=== PATIENT | male | born 1955 | race Caucasian/White ===

== ENCOUNTER 2017-01-12 01:11 | Emergency (ER) | payer BC ==
[2017-01-12] MEDS ORDERED: LIDOCAINE 5% PATCH ONE (01:41)
[2017-01-12] MEDS ORDERED: KETOROLAC TROMETHAMINE 60 MG/2 ML VIAL ONE (01:41)
[2017-01-12] MEDS ORDERED: OXYCODONE HCL 5 MG TABLET ONE (01:41)
[2017-01-12] MEDS ORDERED: METHOCARBAMOL 750 MG TABLET ONE (01:41)
== END 2017-01-12 02:36 | disposition home or self-care (01) ==
LOC: ED 01:11
DX: M54.5 Low back pain (principal); M62.830 Muscle spasm of back; F17.290 Nicotine dependence, other tobacco product, uncomplicated; Z79.899 Other long term (current) drug therapy